=== PATIENT | male | born 1970 | race Caucasian/White ===

== ENCOUNTER → 2023-05-21 | Outpatient (CLI) | payer BC ==
[~2023-05-21] MED LIST: BACTROBAN 22GM22 GM TP; CEPHALEXIN500 M1 PO; CLEOCIN HCL300 MG PO; DIFLUCAN150 MG PO; LEVAQUIN 5500 MG/TA1 PO; MYCOSTATIN100000 U/G TP; NORVASC 10MG10 MG PO; NYSTATIN CREAM15 GM TP; TOPROL XL 25MG25 MG PO; ZESTRIL 20MG TA20 MG PO; ZESTRIL 5MG5 MG PO; ZYLOPRIM 100MG100 MG PO
== END ==
LOC: COL.CARD 11:09
DX: I10 Essential (primary) hypertension (principal)